=== PATIENT | male | born 1995 | race Caucasian/White ===

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

== ENCOUNTER 2017-07-14 11:57 | Emergency (ER) | payer MEDICAID, OTHER ==
[2017-07-14 12:25] VITALS: TEMP 98; BMI 18.8
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
[2017-07-14 15:15] VITALS: BP 110/72; PULSE 76; RESP 18; O2SAT 99
== END 2017-07-14 15:16 | disposition home or self-care (01) ==
LOC: ED 11:57
DX: M79.602 Pain in left arm (principal)

== ENCOUNTER 2018-08-10 01:20 | Emergency (ER) | payer MEDICAID, OTHER ==
[2018-08-10 01:42] VITALS: O2SAT 100
[2018-08-10] MEDS ORDERED: Sodium Chloride 0.9% 1,000 ML IV SCH (01:45)
--- NOTE | 2018-08-10 01:48 | ED PDOC ---
Arrival/HPI - General Historian: Patient - Critical Care Critical Care Minutes: 45 minutes - History of Present Illness Narrative History of Present Illness (Text): 08/10/18 01:45 23 year old male with no pertinent past medical history presents to the E.D. after reporting two episodes to non-bloody, non-billious emesis. Patient states waking up and feeling nauseas. Patient vomited and then felt his heart beat racing. Patient denies any chest pain, shortness of breath, fevers, chills, syncopal episodes, abdominal pain , or any other complaints. PMD: Denies Medical history: denies Surgical history: denies Allergies: Denies Time/Duration: 4-6 hours Symptom Onset: Sudden Symptom Course: Unchanged Quality: Other Severity Level: 2 Activities at Onset: Rest Context: Sitting, Standing Past Medical History - Provider Review Nursing Documentation Reviewed: Yes - Infectious Disease Hx of Infectious Diseases: None - Cardiac Hx Cardiac Disorders: No - Pulmonary Hx Respiratory Disorders: No - Neurological Hx Neurological Disorder: No - HEENT Hx HEENT Disorder: No - Renal Hx Renal Disorder: No - Endocrine/Metabolic Hx Endocrine Disorders: No - Hematological/Oncological Hx Blood Disorders: No - Integumentary Hx Dermatological Disorder: No - Musculoskeletal/Rheumatological Hx Musculoskeletal Disorders: No - Gastrointestinal Hx Gastrointestinal Disorders: No - Genitourinary/Gynecological Hx Genitourinary Disorders: No - Psychiatric Hx Psychophysiologic Disorder: No Hx Substance Use: No - Anesthesia Hx Anesthesia: No Hx Anesthesia Reactions: No Hx Malignant Hyperthermia: No Family/Social History - Physician Review Nursing Documentation Reviewed: Yes Family/Social History: No Known Family HX Smoking Status: Never Smoked Hx Alcohol Use: No Hx Substance Use: No Allergies/Home Meds Allergies/Adverse Reactions: Allergies No Known Allergies Allergy (Verified 08/10/18 01:33) Home Medications: Home Meds Medication Instructions Recorded Confirmed No Known Home Med 08/10/18 08/10/18 Review of Systems - Physician Review All systems were reviewed & negative as marked: Yes - Review of Systems Constitutional: Normal. absent: Fatigue, Weight Change Eyes: Normal. absent: Vision Changes, Photophobia ENT: Normal. absent: Hearing Changes, Rhinorrhea Respiratory: Normal. absent: SOB, Cough Cardiovascular: Normal. absent: Chest Pain, Syncope Gastrointestinal: Nausea, Vomiting. absent: Normal, Abdominal Pain Genitourinary Male: Normal. absent: Frequency Neurological: Normal. absent: Headache, Dizziness Endocrine: Normal. absent: Diaphoresis, Polyuria Hemo/Lymphatic: absent: Adenopathy, Easy Bleeding Psychiatric: Normal. absent: Anxiety, Depression Physical Exam Vital Signs Reviewed: Yes Vital Signs Temp Pulse Resp BP Pulse Ox 08/10/18 01:42 98 F 60 16 112/64 100 Temperature: Afebrile Blood Pressure: Normal Pulse: Regular Respiratory Rate: Normal Appearance: Positive for: Well-Appearing, Non-Toxic, Comfortable Pain Distress: None Mental Status: Positive for: Alert and Oriented X 3. No: Confused - Systems Exam Head: Present: Atraumatic, Normocephalic. No: Abrasion Pupils: Present: PERRL. No: Sluggish Extroacular Muscles: Present: EOMI. No: Gaze Palsy Conjunctiva: Present: Normal. No: Injected Mouth: Present: Moist Mucous Membranes. No: Normal Teeth Neck: Present: Normal Range of Motion. No: Meningeal Signs, JVD, Ly mphadenopathy Respiratory/Chest: Present: Clear to Auscultation, Good Air Exchange, Accessory Muscle Use. No: Respiratory Distress Cardiovascular: Present: Regular Rate and Rhythm, Normal S1, S2. No: Murmurs, Tachycardic Abdomen: Present: Normal Bowel Sounds. No: Tenderness, Distention, Guarding, McBurney's Point Tender Upper Extremity: Present: Normal Inspection, Edema. No: Cyanosis, Swelling, Erythema Lower Extremity: Present: Normal Inspection. No: Edema, Bruno's Sign Neurological: Present: CN II-XII Intact, Speech Normal. No: Normal Cerebellar Funct, Gait Normal Skin: Present: Dry, Normal Color. No: Cold Psychiatric: Present: Oriented x 3, Normal Insight Medical Decision Making ED Course and Treatment: 08/10/18 01:48 23 year old male with presents to the e.d. with emesis and racing heartbeat. Plan: -CBC/CMP -Zofran -IV fluids 08/10/18 03:50 Re-examined and improvement in symptoms. Patient stable for discharge. - Medication Orders Current Medication Orders: Sodium Chloride (Sodium Chloride 0.9%) 1,000 mls @ 150 mls/hr IV .Q6H40M VIPIN Ondansetron HCl (Zofran Inj) 4 mg IVP STAT STA Stop: 08/10/18 01:44 Disposition/Present on Arrival - Present on Arrival Any Indicators Present on Arrival: No History of DVT/PE: No History of Uncontrolled Diabetes: No Urinary Catheter: No History of Decub. Ulcer: No History Surgical Site Infection Following: None - Disposition Have Diagnosis and Disposition been Completed?: Yes Diagnosis: Gastroenteritis Disposition: HOME/ ROUTINE Disposition Time: 03:48 Patient Plan: Discharge Condition: IMPROVED Additional Instructions: 1.F/u with PMD within 5 days of discharge. 2. Return to hospital for any new or worsening symptoms.
[2018-08-10 02:31] LABS: BASO # 0.02 K/mm3 (0.0-2.0); BASO % 0.5 % (0.0-3.0); EOS # 0.1 (0.0-0.7); EOS % 2.7 % (1.5-5.0); HEMOGLOBIN 14.2 g/dL (14.0-18.0); LYMPH # 1.6 (1.2-3.4); LYMPH % 42.7 % (22.0-35.0); MEAN CELL VOLUME 82.3 fl (80.0-105.0); MEAN CORPUSCULAR HEMOGLOBIN 28.6 pg (25.0-35.0); MEAN CORPUSCULAR HGB CONC 34.7 g/dl (31.0-37.0); MEAN PLATELET VOLUME 10.3 fl (7.0-11.0); MONO # 0.4 (0.1-0.6); MONO % 9.6 % (1.0-6.0); RBC 4.97 10^6/uL (3.5-6.1); RED CELL DISTRIBUTION WIDTH 12.7 % (11.5-14.5); WHITE BLOOD COUNT 3.7 10^3/uL (4.5-11.0)
[2018-08-10 02:38] LABS: ALB/GLOB RATIO 1.3 (1.1-1.8); ALBUMIN 4.2 g/dL (3.0-4.8); ALT/SGPT 77 U/L (7-56); AST/SGOT 46 U/L (17-59); BLOOD UREA NITROGEN 13 mg/dL (7-21); GFR NON-AFRICAN AMERICAN > 60
[2018-08-10] MEDS ORDERED: Potassium Chloride 20 mEq/15 ml LIQ UD PO STA (03:51)
[2018-08-10 04:45] VITALS: BP 112/85; PULSE 58; RESP 20; TEMP 97.6
--- NOTE | 2018-08-10 09:00 | CARD ---
APPROVED REPORT Date of service: 08/10/2018 EKG Measurement Heart [id number] <Conclusion> Sinus bradycardia ST elevation, probably due to early repolarization Borderline ECG
== END 2018-08-10 04:15 | disposition home or self-care (01) ==
LOC: ED 01:20
DX: K52.9 Noninfective gastroenteritis and colitis, unspecified (principal)
CPT/HCPCS: 80053; 85025; 93005; 96374; 99281; J2405; J7030